=== PATIENT | male | born 1985 | race Two or more races ===

== ENCOUNTER 2024-08-03 11:57 | Emergency (ER) | payer MEDICAID ==
[~2024-08-03] VITALS: Ht 172.7 cm; Wt 86.2 kg
[2024-08-03 12:34] LABS: BASOPHILS % (AUTO) 0.5 % (0.0-2.0); EOSINOPHILS % (AUTO) 0.1 % (0.0-6.0); HEMATOCRIT 49 % (39-51); HEMOGLOBIN 16.5 g/dL (13.5-17.5); LYMPHOCYTES # (AUTO) 0.9 K/uL (0.8-4.8); LYMPHOCYTES % (AUTO) 11.5 % (20.0-44.0); MEAN CORPUSCULAR HEMOGLOBIN 30 PG (26.0-33.0); MEAN CORPUSCULAR HGB CONC 34 g/dl (31.0-36.0); MEAN CORPUSCULAR VOLUME 89 fL (80-96); MONOCYTES # (AUTO) 0.4 K/uL (0.1-1.30); NEUTROPHILS # (AUTO) 6.2 K/uL (1.8-8.9); NEUTROPHILS % (AUTO) 82.9 % (43.0-81.0); PLATELET COUNT (AUTO) 257 K/uL (150-450); RED BLOOD CELL COUNT(AUTO) 5.52 MIL/uL (4.5-6.0); RED CELL DISTRIBUTION WIDTH 13.6 % (11.5-15.0); WHITE BLOOD COUNT (AUTO) 7.5 K/uL (4.3-11.0)
[2024-08-03 13:30] LABS: CALCIUM, SERUM 8.6 mg/dL (8.5-10.1); CARBON DIOXIDE 22 mmol/L (21-32); CHLORIDE 104 mmol/L (98-107); CREATININE 0.9 mg/dL (0.6-1.3); GLUCOSE 126 mg/dL (74-106); SODIUM SERUM 142 mmol/L (136-145); UREA NITROGEN, BLOOD 10 mg/dL (7-18)
[2024-08-03] MEDS ORDERED: NALO4SPR BNOSTRILS (14:59)
[2024-08-03] MEDS ORDERED: ASPIRIN 81 MG TAB.CHEW ONE (15:44)
[2024-08-03] MEDS: ASPIRIN 81 MG TAB.CHEW PO ONE (15:45)
[2024-08-03 16:04] LABS: AMPHETAMINE, URINE NEGATIVE (NEGATIVE); BARBITURATE, URINE NEGATIVE (NEGATIVE); BENZODIAZEPINE, URINE NEGATIVE (NEGATIVE); CANNABINOID, URINE NEGATIVE (NEGATIVE); OPIATE, URINE NEGATIVE (NEGATIVE); PHENCYCLIDINE SCREEN,URINE NEGATIVE (NEGATIVE)
[2024-08-03 16:05] LABS: COCCAINE, URINE POSITIVE (NEGATIVE)
[2024-08-03] MEDS ORDERED: LORAZEPAM 1 MG TABLET ONE (16:25)
[2024-08-03] MEDS ORDERED: ONDANSETRON 4 MG TAB.RAPDIS ONE (16:26)
[2024-08-03] MEDS: ONDANSETRON 4 MG TAB.RAPDIS SL ONE (16:30)
[2024-08-03] MEDS: LORAZEPAM 1 MG TABLET PO ONE (16:30)
[2024-08-03 17:52] LABS: APPEARANCE,URINE CLEAR (CLEAR); BILIRUBIN,URINE NEGATIVE (NEGATIVE); BLOOD, URINE NEGATIVE Ery/uL (NEGATIVE); COLOR,URINE YELLOW (YELLOW); KETONES,URINE 1+ mg/dL (NEGATIVE); LEUKOCYTE ESTERASE ,URINE NEGATIVE (NEGATIVE); NITRITE, URINE NEGATIVE (NEGATIVE); PROTEIN,URINE NEGATIVE (NEGATIVE); UGLUCOSE NEGATIVE (NEGATIVE); UROBILINOGEN,URINE 0.2 EU/dL (0.2)
[2024-08-03 18:14] LABS: SQUAMOUS EPITHELIAL CELL,UR None Seen /HPF (None Seen)
[2024-08-03 18:15] LABS: BACTERIA,URINE Few /HPF (None Seen); MUCUS,URINE Many /LPF (None Seen)
[2024-08-03 18:17] LABS: ADD URINE CULTURE NO; COARSE GRANULAR CASTS,URINE Few /LPF (None Seen); RBC,URINE 0-2 /HPF (0-2); WBC,URINE 0-2 /HPF (0-3)
[2024-08-03 18:18] LABS: ACETAMINOPHEN 0 ug/ml (10-30); SALICYLATE < 0.2 mg/dL (2.8-20.0)
[2024-08-04 15:59] VITALS: BP 141/79; TEMP 98; O2SAT 99
== END 2024-08-04 14:45 ==
LOC: ER 12:06 → UNDOADMIN 16:48 → TELE 16:48 → ER 08-04 14:45
DX: R07.89 Other chest pain (principal); F10.10 Alcohol abuse, uncomplicated; F32.A Depression, unspecified; T14.91XA Suicide attempt, initial encounter; T40.412A Poisoning by fentanyl or fentanyl analogs, intentional self-harm, initial encounter; Z79.899 Other long term (current) drug therapy; Z20.822 Contact with and (suspected) exposure to COVID-19
CPT/HCPCS: 99285; 93005 ×2; 71045; 85025; 80048; 81001; 36415; 84484 ×2; 87426; 80143; 80320; 80307; Q0162; G0480